=== PATIENT | female | born 1965 | race Caucasian/White ===

== ENCOUNTER 2016-10-20 16:29 | Emergency (ER) | payer SELFPAY ==
[~2016-10-20] VITALS: Wt 68.5 kg
[~2016-10-20 16:29] MED LIST: 'PARAFON FORTE500 M1 PO; ANAPROX DS550 MG PO; AUGMENTIN 875 M1 TAB PO; CLINDAMYCIN HC300 MG PO; CORDROL20 MG PO; DARVOCET N 1001 TAB PO; HYDROCODONE BIT1 T11 PO; MEDROL DOSEPAK4 MG PO; MOTRIN800 MG PO; NAPROSYN500 MG PO; NORFLEX100 MG PO; PROAIR HFA0.09 MG/AC IH; ROBAXIN750 MG PO; TRAMADOL HCL50 MG PO; VICODIN 5/500 505 MG PO; VICODIN HP 10-1 EACH PO; ZANAFLEX4 M2 PO
[2016-10-20 16:33] VITALS: BP 171/90
[2016-10-20 17:07] LABS: BASO # 0.1 10*3/uL (0.0-0.1); BASO % 0.6 % (0.0-1.0); EOS # 0.2 10*3/uL (0.0-0.4); EOS % 2.1 % (1.0-4.0); HEMATOCRIT 40.1 % (37.0-47.0); HEMOGLOBIN 13.1 g/dl (12.0-16.0); LYMPH # 2.4 10*3/uL (1.3-4.4); LYMPH % 24.6 % (27.0-41.0); MEAN CELL VOLUME 93.7 fl (81.0-99.0); MEAN CORPUSCULAR HGB 30.6 pg (27.0-31.0); MEAN CORPUSCULAR HGB CONC 32.7 g/dl (33.0-37.0); MONO # 0.7 10*3/uL (0.1-1.0); MONO % 6.6 % (3.0-9.0); NEUT # 6.4 10*3/uL (2.3-7.9); NEUT % 65.8 % (47.0-73.0); PLATELET COUNT AUTOMATED 346 10*3/uL (130-400); RED BLOOD COUNT 4.28 10*6/uL (4.10-5.10); RED CELL DISTRI WIDTH 13.2 % (0-14.5); WHITE BLOOD COUNT 9.8 10*3/uL (4.8-10.8)
[2016-10-20 17:20] LABS: INTERNATIONAL NORM RATIO 0.9 (2.0-3.5); PROTHROMBIN TIME 9.3 SECONDS (8.9-12.2)
[2016-10-20 17:50] LABS: ALBUMIN 3.7 gm/dl (3.1-4.5); ALKALINE PHOSPHATASE 76 U/L (45-117); BILIRUBIN, TOTAL 0.3 mg/dl (0.2-1.0); BUN 19 mg/dl (7-24); C-REACTIVE PROTEIN 0.61 MG/DL (0-0.3); CARBON DIOXIDE 26 mmol/L (21-32); CHLORIDE 108 mmol/L (98-107); EST GLOM FILT AFRICAN AMERICAN > 60 ml/min; GLUCOSE 145 mg/dL (65-99); MAGNESIUM 2.3 mg/dL (1.5-2.1); POTASSIUM 3.9 mmol/L (3.5-5.1); SGOT/AST 23 IU/L (3-35); SGPT/ALT 27 U/L (12-78); SODIUM 142 mmol/L (136-145); TOTAL PROTEIN 7.3 gm/dL (6.4-8.2)
[2016-10-20 17:52] LABS: TROPONIN I < 0.015 ng/ml (<0.045)
[2016-10-20] MEDS ORDERED: DOXYCYCLINE100 M3 PO (18:03)
[2016-10-20] MEDS ORDERED: PREDNISONE50 MG PO (18:03)
== END 2016-10-20 18:39 | disposition left against medical advice (07) ==
LOC: ED 16:29
PROVIDERS: Student in an Organized Health Care Education/Training Program
DX: J96.90 Respiratory failure, unspecified, unspecified whether with hypoxia or hypercapnia (principal); J44.1 Chronic obstructive pulmonary disease with (acute) exacerbation; F17.200 Nicotine dependence, unspecified, uncomplicated; Z88.0 Allergy status to penicillin; Z88.1 Allergy status to other antibiotic agents; Z88.8 Allergy status to other drugs, medicaments and biological substances; J45.909 Unspecified asthma, uncomplicated

== ENCOUNTER 2017-04-26 16:38 | Emergency (ER) | payer SELFPAY ==
[~2017-04-26] VITALS: Ht 165.1 cm; Wt 69.9 kg
[~2017-04-26 16:38] MED LIST changes: +DOXYCYCLINE100 M3 PO; +PREDNISONE50 MG PO
[2017-04-26 16:43] VITALS: BP 134/80
[2017-04-26] MEDS ORDERED: PREDNISONE10 MG PO (20:15)
== END 2017-04-26 20:16 | disposition home or self-care (01) ==
LOC: ED 16:38
DX: M76.61 Achilles tendinitis, right leg (principal); F17.200 Nicotine dependence, unspecified, uncomplicated; Z98.890 Other specified postprocedural states; Z79.899 Other long term (current) drug therapy; Z88.0 Allergy status to penicillin; Z88.6 Allergy status to analgesic agent; Z88.8 Allergy status to other drugs, medicaments and biological substances; Z88.1 Allergy status to other antibiotic agents

== ENCOUNTER 2017-06-29 08:18 | Emergency (ER) | payer OTHER ==
[~2017-06-29] VITALS: Ht 165.1 cm; Wt 74.4 kg
[2017-06-29 08:18] VITALS: BP 181/83
[~2017-06-29 08:18] MED LIST changes: +PREDNISONE10 MG PO
[2017-06-29] MEDS ORDERED: PREDNISONE50 MG PO (10:37)
== END 2017-06-29 10:38 | disposition home or self-care (01) ==
LOC: ED 08:18
DX: S39.012A Strain of muscle, fascia and tendon of lower back, initial encounter (principal); J44.9 Chronic obstructive pulmonary disease, unspecified; Z88.0 Allergy status to penicillin; Z88.6 Allergy status to analgesic agent; Z88.8 Allergy status to other drugs, medicaments and biological substances; X58.XXXA Exposure to other specified factors, initial encounter; Y93.89 Activity, other specified; Y92.89 Other specified places as the place of occurrence of the external cause; Y99.8 Other external cause status

== ENCOUNTER → 2017-08-09 | Outpatient (CLI) | payer OTHER | END | disposition home or self-care (01) | LOC: US 08-02 12:30 | DX: M79.604 Pain in right leg (principal); M79.605 Pain in left leg ==

== ENCOUNTER → 2017-12-30 | Outpatient (CLI) | payer OTHER | END | disposition home or self-care (01) | LOC: ORTHO 00:49 | DX: M25.531 Pain in right wrist (principal); M25.522 Pain in left elbow; R20.0 Anesthesia of skin ==

== ENCOUNTER → 2019-05-03 | Outpatient (CLI) | payer OTHER ==
[~2019-05-03] MED LIST changes: +ROBAXIN500 M1 PO
[2019-05-03 10:30] LABS: BASO % 0.2 % (0.0-1.0); EOS # 0.1 10*3/uL (0.0-0.4); EOS % 0.8 % (1.0-4.0); HEMATOCRIT 37.8 % (37.0-47.0); HEMOGLOBIN 12.1 g/dl (12.0-16.0); LYMPH # 3.1 10*3/uL (1.3-4.4); LYMPH % 23.5 % (27.0-41.0); MEAN CELL VOLUME 93.3 fl (81.0-99.0); MEAN CORPUSCULAR HGB 29.9 pg (27.0-31.0); MEAN PLATELET VOLUME 8.9 fl (9.6-12.3); MONO # 0.9 10*3/uL (0.1-1.0); MONO % 6.4 % (3.0-9.0); PLATELET COUNT AUTOMATED 513 10*3/uL (130-400); RED BLOOD COUNT 4.05 10*6/uL (4.10-5.10); RED CELL DISTRI WIDTH 13.7 % (0-14.5); RETICULOCYTE % 1.59 % (0.50-2.50); WHITE BLOOD COUNT 13.3 10*3/uL (4.8-10.8)
[2019-05-03 10:47] LABS: BILIRUBIN NEGATIVE (NEGATIVE); BLOOD NEGATIVE (NEGATIVE); CLARITY CLEAR (CLEAR); COLOR YELLOW (YELLOW); GLUCOSE NEGATIVE (NEGATIVE); KETONE NEGATIVE (NEGATIVE); LEUKO ESTERASE NEGATIVE (NEGATIVE); NITRITE NEGATIVE (NEGATIVE); PH 6.5 (5.0-9.0); SPECIFIC GRAVITY 1.015 (1.005-1.030); UROBILINOGEN 0.2 E.U./dl (0.2-1.0)
[2019-05-03 10:55] LABS: WBC 0-2 wbc/hpf (0-5)
[2019-05-03 11:00] LABS: ALBUMIN 3.1 gm/dl (3.1-4.5); BILIRUBIN, DIRECT < 0.1 mg/dL (0.0-0.2); BUN 11 mg/dl (7-24); CHLORIDE 104 mmol/L (98-107); CHOLESTEROL 170 mg/dL (<200); GAMMA GLUTAMYL TRANSPEPTIDASE 20 U/L (5-55); POTASSIUM 3.2 mmol/L (3.5-5.1); SODIUM 140 mmol/L (136-145); TRIGLYCERIDES 214 mg/dl (<150); VLDL CHOLESTEROL 43 mg/dL (6-40)
[2019-05-03 11:10] LABS: ALKALINE PHOSPHATASE 81 U/L (45-117); HDL CHOLESTEROL 69 mg/dl (40-60); IRON 61 ug/dL (50-170); LDL CHOLESTEROL 58 mg/dL (9-159); SGOT/AST 15 IU/L (3-35); SGPT/ALT 21 U/L (12-78); TOTAL IRON BINDING CAPACITY 316 ug/dl (250-450); TOTAL PROTEIN 6.8 gm/dL (6.4-8.2)
[2019-05-03 11:36] LABS: FERRITIN 36.6 ng/mL (10.0-291.0); VITAMIN D, 25-HYDROXY 46.1 ng/mL (30-100)
== END | disposition home or self-care (01) ==
LOC: LAB 08:48 → MAMMO 09:30
PROVIDERS: Family Medicine
DX: Z12.31 Encounter for screening mammogram for malignant neoplasm of breast (principal); E78.5 Hyperlipidemia, unspecified; E55.9 Vitamin D deficiency, unspecified; R53.83 Other fatigue; R79.89 Other specified abnormal findings of blood chemistry

== ENCOUNTER → 2019-06-06 | Outpatient (CLI) | payer OTHER | END | disposition home or self-care (01) | LOC: MAMMO 10:00 | DX: N63.21 Unspecified lump in the left breast, upper outer quadrant (principal); N60.02 Solitary cyst of left breast; D24.2 Benign neoplasm of left breast; R92.8 Other abnormal and inconclusive findings on diagnostic imaging of breast ==

== ENCOUNTER → 2022-07-08 | Outpatient (CLI) | payer OTHER ==
[2022-07-09 05:07] LABS: ALPHA-1-ANTITRYPSIN, SERUM 194 mg/dL (101-187)
== END | disposition home or self-care (01) ==
LOC: LAB 10:18
PROVIDERS: ATTEND Internal Medicine Critical Care Medicine
DX: J44.9 Chronic obstructive pulmonary disease, unspecified (principal)

== ENCOUNTER → 2022-09-06 | Outpatient (CLI) | payer OTHER ==
[2022-09-06 14:36] LABS: BASO % 0.4 % (0.0-1.0); EOS # 0.1 10*3/uL (0.0-0.4); EOS % 1.1 % (1.0-4.0); HEMATOCRIT 45.9 % (37.0-47.0); LYMPH # 1.8 10*3/uL (1.3-4.4); LYMPH % 23.8 % (27.0-41.0); MEAN CELL VOLUME 89.3 fl (81.0-99.0); MEAN CORPUSCULAR HGB 28.8 pg (27.0-31.0); MEAN CORPUSCULAR HGB CONC 32.2 g/dl (33.0-37.0); MEAN PLATELET VOLUME 8.7 fl (9.6-12.3); MONO # 0.6 10*3/uL (0.1-1.0); MONO % 8.5 % (3.0-9.0); NEUT % 66.1 % (47.0-73.0); PLATELET COUNT AUTOMATED 438 10*3/uL (130-400); RED BLOOD COUNT 5.14 10*6/uL (4.10-5.10); RED CELL DISTRI WIDTH 13.6 % (0-14.5); RETICULOCYTE % 1.02 % (0.50-2.50); WHITE BLOOD COUNT 7.5 10*3/uL (4.8-10.8)
[2022-09-06 14:38] LABS: BILIRUBIN Negative (Negative); BLOOD Negative (Negative); CLARITY Clear (Clear); COLOR Dark Yellow (Yellow); GLUCOSE Negative (Negative); KETONE Trace (Negative); LEUKO ESTERASE 1+ (Negative); NITRITE Negative (Negative); SPECIFIC GRAVITY 1.025 (1.001-1.030)
[2022-09-06 14:51] LABS: BACTERIA 3+; RBC 0-2 rbc/hpf (0-2)
[2022-09-06 15:09] LABS: ALKALINE PHOSPHATASE 104 U/L (46-116); BUN 10 mg/dl (9-23); CHLORIDE 102 mmol/L (98-107); CHOLESTEROL 176 mg/dL (<200); GAMMA GLUTAMYL TRANSPEPTIDASE 19 U/L (0-73); LDL CHOLESTEROL 85 mg/dL (9-159); POTASSIUM 3.8 mmol/L (3.4-5.1); SGPT/ALT 12 U/L (10-49); T3 UPTAKE 19.9 % (22.4-36.7); THYROID STIM HORMONE (HS) 0.665 uIU/ml (0.550-4.780); THYROXINE (T4) TOTAL 12.4 ug/dl (4.5-10.9); TRIGLYCERIDES 81 mg/dl (<150); VITAMIN D, 25-HYDROXY 43.7 ng/mL (30-100)
== END | disposition home or self-care (01) ==
LOC: LAB 14:10
PROVIDERS: ATTEND Family Medicine
DX: E78.5 Hyperlipidemia, unspecified (principal); E55.9 Vitamin D deficiency, unspecified; R79.89 Other specified abnormal findings of blood chemistry; R53.83 Other fatigue; R74.8 Abnormal levels of other serum enzymes

== ENCOUNTER → 2023-06-06 | Outpatient (CLI) | payer OTHER ==
[2023-06-06 12:49] LABS: BASO # 0.1 10*3/uL (0.0-0.1); BASO % 0.8 % (0.0-1.0); EOS # 0.2 10*3/uL (0.0-0.4); HEMATOCRIT 46.3 % (37.0-47.0); LYMPH # 2.3 10*3/uL (1.3-4.4); MEAN CELL VOLUME 91.5 fl (81.0-99.0); MEAN CORPUSCULAR HGB 27.9 pg (27.0-31.0); MEAN CORPUSCULAR HGB CONC 30.5 g/dl (33.0-37.0); MEAN PLATELET VOLUME 8.9 fl (9.6-12.3); MONO # 0.7 10*3/uL (0.1-1.0); NEUT % 54.9 % (47.0-73.0); PLATELET COUNT AUTOMATED 467 10*3/uL (130-400); RED BLOOD COUNT 5.06 10*6/uL (4.10-5.10); RED CELL DISTRI WIDTH 14.6 % (0-14.5); RETICULOCYTE % 0.94 % (0.50-2.50); WHITE BLOOD COUNT 7.2 10*3/uL (4.8-10.8)
[2023-06-06 13:01] LABS: BILIRUBIN Negative (Negative); BLOOD Negative (Negative); CLARITY Clear (Clear); COLOR Yellow (Yellow); GLUCOSE Negative (Negative); KETONE Negative (Negative); LEUKO ESTERASE Trace (Negative); NITRITE Negative (Negative)
[2023-06-06 13:16] LABS: ALKALINE PHOSPHATASE 97 U/L (46-116); BUN 12 mg/dl (9-23); CHLORIDE 104 mmol/L (98-107); CHOLESTEROL 234 mg/dL (<200); GAMMA GLUTAMYL TRANSPEPTIDASE 15 U/L (0-73); LDL CHOLESTEROL 128 mg/dL (9-159); POTASSIUM 3.8 mmol/L (3.4-5.1); SGPT/ALT 12 U/L (5-49); T3 UPTAKE 24.9 % (22.4-36.7); THYROXINE (T4) TOTAL 9.7 ug/dl (4.5-10.9); TOTAL PROTEIN 7.1 gm/dL (6.0-8.0); TRIGLYCERIDES 182 mg/dl (<150)
[2023-06-06 13:18] LABS: VITAMIN D, 25-HYDROXY 35.3 ng/mL (30-100)
[2023-06-06 13:42] LABS: BACTERIA 2+; MUCOUS 2+
== END | disposition home or self-care (01) ==
LOC: LAB 12:17
PROVIDERS: ATTEND Family Medicine
DX: E78.5 Hyperlipidemia, unspecified (principal); R79.89 Other specified abnormal findings of blood chemistry; R53.83 Other fatigue; E55.9 Vitamin D deficiency, unspecified

== ENCOUNTER → 2024-06-11 | Outpatient (CLI) | payer MEDICARE ==
[~2024-06-11] MED LIST changes: +GADOTERATE MEGLUMINE 10 MMOL/20 ML VIAL IV ONE
== END | disposition home or self-care (01) ==
LOC: US 08:43
PROVIDERS: ATTEND Family Medicine
DX: I65.23 Occlusion and stenosis of bilateral carotid arteries (principal); R51.9 Headache, unspecified; R47.81 Slurred speech

== ENCOUNTER → 2024-06-26 | Outpatient (CLI) | payer MEDICARE | END | disposition home or self-care (01) | LOC: MRI 06-11 10:00 | PROVIDERS: ATTEND Family Medicine | DX: H74.8X1 Other specified disorders of right middle ear and mastoid (principal); R44.3 Hallucinations, unspecified; R41.3 Other amnesia; R47.81 Slurred speech; R51.9 Headache, unspecified ==

== ENCOUNTER 2024-07-31 10:05 | Emergency (ER) | payer MEDICARE ==
[~2024-07-31] VITALS: Ht 165.1 cm; Wt 81.2 kg
[~2024-07-31 10:05] MED LIST changes: -GADOTERATE MEGLUMINE 10 MMOL/20 ML VIAL IV ONE
[2024-07-31 10:18] VITALS: BP 149/86
[2024-07-31] MEDS ORDERED: METHOCARBAMOL 500 MG TAB PO ONE (11:00)
[2024-07-31] MEDS ORDERED: methylPREDNISolone sod succ 125 MG VIAL IV ONE (11:00)
[2024-07-31] MEDS ORDERED: ACETAMINOPHEN 100 ML IV ONE (11:15)
[2024-07-31] MEDS ORDERED: PREDNISONE50 MG PO (12:40)
[2024-07-31] MEDS ORDERED: METHOCARBAMOL500 M1 PO (12:40)
== END 2024-07-31 12:34 | disposition home or self-care (01) ==
LOC: ED 10:05
DX: M54.50 Low back pain, unspecified (principal); J44.9 Chronic obstructive pulmonary disease, unspecified; F32.A Depression, unspecified; F41.9 Anxiety disorder, unspecified; Z79.899 Other long term (current) drug therapy; Z88.0 Allergy status to penicillin; Z88.1 Allergy status to other antibiotic agents; Z88.6 Allergy status to analgesic agent; Z98.890 Other specified postprocedural states

== ENCOUNTER 2024-08-19 09:43 | Inpatient (IN) | payer MEDICARE ==
[~2024-08-19] VITALS: Ht 165.1 cm; Wt 81.2 kg
[~2024-08-19 09:43] MED LIST changes: +METHOCARBAMOL500 M1 PO
[2024-08-19 09:56] VITALS: BP 140/84
[2024-08-19] MEDS ORDERED: Albuterol Sulf/Ipratropium 3 ML VIAL NEB ONE ×2 (10:25→10:59)
[2024-08-19] MEDS ORDERED: ACETAMINOPHEN 325 MG TAB PO ONE (10:25)
[2024-08-19] MEDS ORDERED: methylPREDNISolone sod succ 125 MG VIAL IV ONE (10:25)
[2024-08-19 10:42] LABS: BASO % 0.2 % (0.0-1.0); EOS % 0.3 % (1.0-4.0); HEMATOCRIT 32.2 % (37.0-47.0); MEAN CELL VOLUME 74.4 fl (81.0-99.0); MEAN CORPUSCULAR HGB 21.2 pg (27.0-31.0); MEAN CORPUSCULAR HGB CONC 28.6 g/dl (33.0-37.0); MEAN PLATELET VOLUME 9.3 fl (9.6-12.3); MONO % 8.1 % (3.0-9.0); NEUT # 9.4 10*3/uL (2.3-7.9); NEUT % 79.6 % (47.0-73.0); PLATELET COUNT AUTOMATED 395 10*3/uL (130-400); RED BLOOD COUNT 4.33 10*6/uL (4.10-5.10); RED CELL DISTRI WIDTH 20.7 % (0-14.5); WHITE BLOOD COUNT 11.8 10*3/uL (4.8-10.8)
[2024-08-19 11:06] LABS: ALKALINE PHOSPHATASE 90 U/L (46-116); BUN 13 mg/dl (9-23); CHLORIDE 99 mmol/L (98-107); POTASSIUM 3.7 mmol/L (3.4-5.1); SGPT/ALT 9 U/L (5-49); TOTAL PROTEIN 7.1 gm/dL (6.0-8.0)
[2024-08-19] MEDS ORDERED: LISINOPRIL20 MG PO (11:06)
[2024-08-19] MEDS ORDERED: ALPRAZOLAM0.5 M3 PO (11:06)
[2024-08-19] MEDS ORDERED: AMLODIPINE BESYL5 MG PO (11:06)
[2024-08-19] MEDS ORDERED: OMEPRAZOLE40 MG PO (11:06)
[2024-08-19] MEDS ORDERED: VITAMIN D3125 MC1 PO (11:07)
[2024-08-19] MEDS ORDERED: ATORVASTATIN CA20 M1 PO (11:07)
[2024-08-19 11:10] VITALS: BP 116/90
[2024-08-19 11:34] LABS: ABG BASE EXCESS -0.4 mmol/L (-2.0-3.0); ABG O2 SATURATION 79.5 % (94.0-98.0); ARTERIAL BLOOD GAS PH 7.362 (7.350-7.450)
[2024-08-19 11:37] LABS: ARTERIAL BLOOD GAS PO2 47.7 mmHg (83.0-108.0)
[2024-08-19] MEDS ORDERED: Albuterol Sulfate 2.5 MG/3 ML VIAL NEB ONE (11:45)
[2024-08-19] MEDS ORDERED: Nicotine 21 MG PATCH T ONE (12:15)
[2024-08-19 13:34] VITALS: BP 122/84
[2024-08-19] MEDS ORDERED: MORPHINE Sulfate 2 MG/ML SYR IV PRN (13:35)
[2024-08-19] MEDS ORDERED: Ondansetron Hydrochloride 4 MG/2 ML VIAL IV PRN (13:35)
[2024-08-19] MEDS ORDERED: Pantoprazole Sodium 40 MG TAB PO PRN (13:40)
[2024-08-19] MEDS ORDERED: Albuterol Sulf/Ipratropium 3 ML VIAL NEB SCH (13:50)
[2024-08-19 14:40] VITALS: BP 117/62
[2024-08-19] MEDS ORDERED: cefTRIAXone Sodium 10 ML IV SCH (15:00)
[2024-08-19 16:00] VITALS: BP 117/62
[2024-08-19] MEDS ORDERED: cefTRIAXone Sodium 1 GM in SYRINGE INFUSION 10 ML IV SCH (16:00)
[2024-08-19 20:00] VITALS: BP 145/73
[2024-08-19] MEDS ORDERED: LORazepam 0.5 MG TAB PO PRN (20:45)
[2024-08-19 20:58] LABS: BILIRUBIN Negative (Negative); BLOOD Negative (Negative); CLARITY Clear (Clear); COLOR Yellow (Yellow); GLUCOSE Negative (Negative); KETONE Trace (Negative); LEUKO ESTERASE Negative (Negative); NITRITE Negative (Negative); PH 5.5 (4.5-8.0)
[2024-08-19 21:05] LABS: MUCOUS 3+; WBC 0-2 wbc/hpf (0-5)
[2024-08-19] MEDS ORDERED: methylPREDNISolone sod succ 40 MG VIAL IV SCH (22:00)
[2024-08-19] MEDS ORDERED: Doxycycline Hyclate 100 MG CAPSULE PO SCH (22:00)
[2024-08-20] VITALS (7 sets, daily range): BP systolic 92–150; BP diastolic 40–81
[2024-08-20] MEDS ORDERED: LORazepam 1 MG TAB PO PRN (06:14)
[2024-08-20 06:30] LABS: EOS % 0.2 % (1.0-4.0); HEMATOCRIT 30.5 % (37.0-47.0); MEAN CELL VOLUME 74.2 fl (81.0-99.0); MEAN CORPUSCULAR HGB 21.7 pg (27.0-31.0); MEAN CORPUSCULAR HGB CONC 29.2 g/dl (33.0-37.0); MEAN PLATELET VOLUME 9.6 fl (9.6-12.3); MONO # 0.2 10*3/uL (0.1-1.0); MONO % 3.8 % (3.0-9.0); NEUT # 5.3 10*3/uL (2.3-7.9); NEUT % 86.5 % (47.0-73.0); PLATELET COUNT AUTOMATED 415 10*3/uL (130-400); RED BLOOD COUNT 4.11 10*6/uL (4.10-5.10); RETICULOCYTE % 1.53 % (0.50-2.50); WHITE BLOOD COUNT 6.1 10*3/uL (4.8-10.8)
[2024-08-20 06:36] LABS: CHLORIDE 99 mmol/L (98-107); CHOLESTEROL 168 mg/dL (<200); FREE T4 1.06 ng/dl (0.89-1.76); LDL CHOLESTEROL 94 mg/dL (9-159); TRIGLYCERIDES 72 mg/dl (<150)
[2024-08-20 06:40] LABS: BUN 25 mg/dl (9-23)
[2024-08-20 07:26] LABS: VITAMIN D, 25-HYDROXY 56.7 ng/mL (30-100)
[2024-08-20 08:07] LABS: ABG O2 SATURATION 87.8 % (94.0-98.0); ARTERIAL BLOOD GAS PH 7.347 (7.350-7.450); ARTERIAL BLOOD GAS PO2 58.2 mmHg (83.0-108.0)
[2024-08-20 08:08] LABS: ABG BASE EXCESS 3.2 mmol/L (-2.0-3.0)
[2024-08-20] MEDS ORDERED: dexmedeTOMIDine IN 0.9 % NACL 100 ML IV SCH (08:50)
[2024-08-20] MEDS ORDERED: Enoxaparin Sodium 40 MG/0.4 ML SYR SC SCH (10:00)
[2024-08-20] MEDS ORDERED: Nicotine 21 MG PATCH T SCH (10:00)
[2024-08-20] MEDS ORDERED: amLODIPine besylate 5 MG TAB PO SCH (10:00)
[2024-08-20] MEDS ORDERED: LISINOPRIL 20 MG TAB PO SCH (10:00)
[2024-08-20] MEDS ORDERED: ATORVASTATIN CALCIUM 20 MG TAB PO SCH (18:00)
[2024-08-21] VITALS (8 sets, daily range): BP systolic 102–147; BP diastolic 41–77
[2024-08-21 06:10] LABS: HEMATOCRIT 31.4 % (37.0-47.0); MEAN CORPUSCULAR HGB 21.3 pg (27.0-31.0); MEAN PLATELET VOLUME 9.7 fl (9.6-12.3); PLATELET COUNT AUTOMATED 459 10*3/uL (130-400); RED BLOOD COUNT 4.13 10*6/uL (4.10-5.10); WHITE BLOOD COUNT 12.8 10*3/uL (4.8-10.8)
[2024-08-21 06:14] LABS: MANUAL DIFF REFLEX YES
[2024-08-21 06:48] LABS: ALKALINE PHOSPHATASE 76 U/L (46-116); CHLORIDE 100 mmol/L (98-107); POTASSIUM 4.3 mmol/L (3.4-5.1); SGPT/ALT 12 U/L (5-49); TOTAL PROTEIN 6.9 gm/dL (6.0-8.0)
[2024-08-21 06:50] LABS: BUN 42 mg/dl (9-23)
[2024-08-21 07:00] LABS: MICROCYTOSIS SLIGHT; PLATELET SUFFICIENCY HIGH (NORMAL); TOTAL CELLS COUNTED 100 #CELLS
[2024-08-21] MEDS ORDERED: FERROUS SULFATE 325 MG TAB PO SCH (12:45)
[2024-08-21] MEDS ORDERED: SODIUM CHLORIDE 0.9% 100 ML BAG IV ONE (13:00)
[2024-08-21] MEDS ORDERED: IOHEXOL 350 MG/ML 100 ML VIAL IV ONE (13:00)
[2024-08-22] VITALS: BP 140/72; BP 148/90
[2024-08-22 04:00] VITALS: BP 153/92
[2024-08-22 06:05] LABS: HEMATOCRIT 29.2 % (37.0-47.0); MEAN CELL VOLUME 75.1 fl (81.0-99.0); MEAN CORPUSCULAR HGB 21.9 pg (27.0-31.0); MEAN CORPUSCULAR HGB CONC 29.1 g/dl (33.0-37.0); MEAN PLATELET VOLUME 9.7 fl (9.6-12.3); PLATELET COUNT AUTOMATED 520 10*3/uL (130-400); RED BLOOD COUNT 3.89 10*6/uL (4.10-5.10); RED CELL DISTRI WIDTH 21.2 % (0-14.5); WHITE BLOOD COUNT 13.4 10*3/uL (4.8-10.8)
[2024-08-22 06:11] LABS: MANUAL DIFF REFLEX YES
[2024-08-22 06:24] LABS: BUN 40 mg/dl (9-23); CHLORIDE 103 mmol/L (98-107); POTASSIUM 4.6 mmol/L (3.4-5.1)
[2024-08-22 07:33] LABS: TOTAL CELLS COUNTED 100 #CELLS
[2024-08-22 07:34] LABS: OVALOCYTES FEW; PLATELET SUFFICIENCY HIGH (NORMAL)
[2024-08-22 07:36] LABS: MICROCYTOSIS SLIGHT; POLYCHROMASIA SLIGHT; SCHISTOCYTES FEW
[2024-08-22 08:00] VITALS: BP 148/82
[2024-08-22] MEDS ORDERED: SODIUM CHLORIDE 0.9% 1,000 ML IV ONE (08:45)
[2024-08-22] MEDS ORDERED: Metoprolol Tartrate 25 MG TAB PO SCH (08:45)
[2024-08-22 12:00] VITALS: BP 135/70
[2024-08-22] MEDS ORDERED: LORazepam 1 MG TAB PO SCH (14:00)
[2024-08-22 16:00] VITALS: BP 139/68
[2024-08-22 20:00] VITALS: BP 123/69
[2024-08-23] VITALS (10 sets, daily range): BP systolic 124–169; BP diastolic 62–105
[2024-08-23 05:17] LABS: BUN 31 mg/dl (9-23); CHLORIDE 103 mmol/L (98-107); POTASSIUM 4.1 mmol/L (3.4-5.1)
[2024-08-23 06:12] LABS: BASO % 0.1 % (0.0-1.0); EOS % 0.3 % (1.0-4.0); HEMATOCRIT 28.2 % (37.0-47.0); MEAN CORPUSCULAR HGB 21.8 pg (27.0-31.0); MEAN CORPUSCULAR HGB CONC 28.7 g/dl (33.0-37.0); MEAN PLATELET VOLUME 9.6 fl (9.6-12.3); MONO % 7.5 % (3.0-9.0); NEUT # 9.6 10*3/uL (2.3-7.9); NEUT % 74.1 % (47.0-73.0); PLATELET COUNT AUTOMATED 520 10*3/uL (130-400); RED BLOOD COUNT 3.71 10*6/uL (4.10-5.10); RED CELL DISTRI WIDTH 21.2 % (0-14.5)
[2024-08-23] MEDS ORDERED: methylPREDNISolone sod succ 40 MG VIAL IV SCH (10:00)
[2024-08-23] MEDS ORDERED: Metoprolol Tartrate 50 MG TAB PO SCH (10:00)
[2024-08-23] MEDS ORDERED: SODIUM CHLORIDE 0.9% 500 ML IV ONE (10:27)
[2024-08-23] MEDS ORDERED: Vancomycin Hydrochloride 1,000 MG VIAL ONE (11:51)
[2024-08-23] MEDS ORDERED: BUPivacaine 0.5% 10 ML VIAL ONE (11:51)
[2024-08-23] MEDS ORDERED: ceFAZolin sodium/sodium chlor 20 ML IV ONE (12:48)
[2024-08-23] MEDS ORDERED: Ketamine Hydrochloride 50 MG/5 ML SYRINGE IV ONE (13:51)
[2024-08-23] MEDS ORDERED: PROPOFOL 200 MG/20 ML VIAL IV ONE (13:51)
[2024-08-23] MEDS ORDERED: LORazepam 1 MG TAB PO SCH (16:00)
[2024-08-24] VITALS: BP 144/73
[2024-08-24 06:17] LABS: BUN 27 mg/dl (9-23); CHLORIDE 101 mmol/L (98-107); POTASSIUM 4.1 mmol/L (3.4-5.1)
[2024-08-24 06:51] LABS: BASO % 0.1 % (0.0-1.0); EOS % 0.2 % (1.0-4.0); HEMATOCRIT 31.8 % (37.0-47.0); MEAN CELL VOLUME 76.6 fl (81.0-99.0); MEAN CORPUSCULAR HGB 21.7 pg (27.0-31.0); MEAN CORPUSCULAR HGB CONC 28.3 g/dl (33.0-37.0); MEAN PLATELET VOLUME 9.6 fl (9.6-12.3); MONO # 0.7 10*3/uL (0.1-1.0); MONO % 5.8 % (3.0-9.0); NEUT % 74.2 % (47.0-73.0); PLATELET COUNT AUTOMATED 553 10*3/uL (130-400); RED BLOOD COUNT 4.15 10*6/uL (4.10-5.10); RED CELL DISTRI WIDTH 21.2 % (0-14.5); WHITE BLOOD COUNT 12.1 10*3/uL (4.8-10.8)
[2024-08-24 08:00] VITALS: BP 117/57
[2024-08-24] MEDS ORDERED: predniSONE 20 MG TAB PO SCH (10:00)
[2024-08-24 12:00] VITALS: BP 123/53
[2024-08-24 13:07] LABS: ACID FAST SPEC PROCESSING Tissue Grinding (.)
[2024-08-24 13:07] LABS: ACID FAST SPEC PROCESSING Tissue Grinding (.)
[2024-08-24 16:00] VITALS: BP 94/75
[2024-08-24 17:12] VITALS: BP 127/58
[2024-08-24 20:34] VITALS: BP 140/72
[2024-08-25] VITALS: BP 143/93
[2024-08-25 05:54] VITALS: BP 133/73
[2024-08-25 06:11] LABS: BASO % 0.1 % (0.0-1.0); EOS % 0.4 % (1.0-4.0); HEMATOCRIT 29.1 % (37.0-47.0); MEAN CELL VOLUME 75.6 fl (81.0-99.0); MEAN CORPUSCULAR HGB 21.8 pg (27.0-31.0); MEAN CORPUSCULAR HGB CONC 28.9 g/dl (33.0-37.0); MEAN PLATELET VOLUME 9.1 fl (9.6-12.3); MONO # 0.8 10*3/uL (0.1-1.0); MONO % 7.1 % (3.0-9.0); NEUT # 8.3 10*3/uL (2.3-7.9); NEUT % 72.7 % (47.0-73.0); PLATELET COUNT AUTOMATED 567 10*3/uL (130-400); RED BLOOD COUNT 3.85 10*6/uL (4.10-5.10); RED CELL DISTRI WIDTH 21.2 % (0-14.5); WHITE BLOOD COUNT 11.4 10*3/uL (4.8-10.8)
[2024-08-25 06:21] LABS: BUN 24 mg/dl (9-23); CHLORIDE 101 mmol/L (98-107); POTASSIUM 3.7 mmol/L (3.4-5.1)
[2024-08-25 08:00] VITALS: BP 119/70
[2024-08-25 12:00] VITALS: BP 122/71
[2024-08-25] MEDS ORDERED: MORPHINE Sulfate 2 MG/ML SYR IV PRN (13:40)
[2024-08-25] MEDS ORDERED: Ketorolac Tromethamine 15 MG/ML VIAL IV PRN (13:40)
[2024-08-25 16:00] VITALS: BP 143/76
[2024-08-25 20:00] VITALS: BP 149/79
[2024-08-26] VITALS: BP 135/74
[2024-08-26 04:00] VITALS: BP 166/88
[2024-08-26 06:36] LABS: BASO % 0.1 % (0.0-1.0); EOS # 0.1 10*3/uL (0.0-0.4); EOS % 0.4 % (1.0-4.0); HEMATOCRIT 29.7 % (37.0-47.0); MEAN CELL VOLUME 77.1 fl (81.0-99.0); MEAN CORPUSCULAR HGB 21.6 pg (27.0-31.0); MEAN CORPUSCULAR HGB CONC 27.9 g/dl (33.0-37.0); MEAN PLATELET VOLUME 9.4 fl (9.6-12.3); MONO % 7.5 % (3.0-9.0); NEUT # 10.6 10*3/uL (2.3-7.9); NEUT % 76.3 % (47.0-73.0); PLATELET COUNT AUTOMATED 588 10*3/uL (130-400); RED BLOOD COUNT 3.85 10*6/uL (4.10-5.10); RED CELL DISTRI WIDTH 21.2 % (0-14.5); WHITE BLOOD COUNT 13.9 10*3/uL (4.8-10.8)
[2024-08-26 06:44] LABS: BUN 21 mg/dl (9-23); CHLORIDE 99 mmol/L (98-107); POTASSIUM 3.9 mmol/L (3.4-5.1)
[2024-08-26 08:00] VITALS: BP 137/68
[2024-08-26] MEDS ORDERED: DOXYCYCLINE MO100 MG PO (11:46)
[2024-08-26 12:00] VITALS: BP 128/67
== END 2024-08-26 13:21 | disposition home or self-care (01) | DRG 987 ==
LOC: ED 09:43 → 4E 13:11 → ICCU 13:11 → EDHOLD 13:11 → 4E 14:30 → ICCU 08-20 09:11 → 4E 08-21 13:31
PROVIDERS: Emergency Medicine; Podiatrist; Student in an Organized Health Care Education/Training Program; ADMIT Student in an Organized Health Care Education/Training Program; ATTEND Student in an Organized Health Care Education/Training Program
PROC: 5A09357 Assistance with Respiratory Ventilation, Less than 24 Consecutive Hours, Continuous Positive Airway Pressure (ICD-10-PCS; principal; 2024-08-19)
PROC: 5A09357 Assistance with Respiratory Ventilation, Less than 24 Consecutive Hours, Continuous Positive Airway Pressure (ICD-10-PCS; 2024-08-20)
PROC: 5A09357 Assistance with Respiratory Ventilation, Less than 24 Consecutive Hours, Continuous Positive Airway Pressure (ICD-10-PCS; 2024-08-21)
PROC: 0QBR0ZX Excision of Left Toe Phalanx, Open Approach, Diagnostic (ICD-10-PCS; 2024-08-23)
DX: J96.21 Acute and chronic respiratory failure with hypoxia (principal); G93.41 Metabolic encephalopathy; F10.930 Alcohol use, unspecified with withdrawal, uncomplicated; J44.1 Chronic obstructive pulmonary disease with (acute) exacerbation; J96.22 Acute and chronic respiratory failure with hypercapnia; M79.89 Other specified soft tissue disorders; L97.529 Non-pressure chronic ulcer of other part of left foot with unspecified severity; D50.9 Iron deficiency anemia, unspecified; E66.9 Obesity, unspecified; F41.1 Generalized anxiety disorder; F32.A Depression, unspecified; E05.90 Thyrotoxicosis, unspecified without thyrotoxic crisis or storm; I10 Essential (primary) hypertension; E78.2 Mixed hyperlipidemia; D72.828 Other elevated white blood cell count; R73.9 Hyperglycemia, unspecified; F17.210 Nicotine dependence, cigarettes, uncomplicated; M54.50 Low back pain, unspecified; M20.5X2 Other deformities of toe(s) (acquired), left foot; G62.9 Polyneuropathy, unspecified; R73.03 Prediabetes; E86.0 Dehydration; S91.102A Unspecified open wound of left great toe without damage to nail, initial encounter; Q38.2 Macroglossia; Z88.1 Allergy status to other antibiotic agents; Z88.0 Allergy status to penicillin; Z88.8 Allergy status to other drugs, medicaments and biological substances; Z91.09 Other allergy status, other than to drugs and biological substances; Z79.899 Other long term (current) drug therapy; Z79.01 Long term (current) use of anticoagulants; Z79.2 Long term (current) use of antibiotics; Z82.49 Family history of ischemic heart disease and other diseases of the circulatory system; Z90.49 Acquired absence of other specified parts of digestive tract; Z82.5 Family history of asthma and other chronic lower respiratory diseases; Z71.6 Tobacco abuse counseling; Z80.3 Family history of malignant neoplasm of breast; Z68.29 Body mass index [BMI] 29.0-29.9, adult; Z80.0 Family history of malignant neoplasm of digestive organs; X58.XXXA Exposure to other specified factors, initial encounter; Y93.89 Activity, other specified; Y92.89 Other specified places as the place of occurrence of the external cause; Y99.8 Other external cause status; Y90.9 Presence of alcohol in blood, level not specified

== ENCOUNTER → 2024-12-17 | Outpatient (CLI) | payer MEDICARE ==
[~2024-12-17] MED LIST changes: +ALPRAZOLAM0.5 M3 PO; +AMLODIPINE BESYL5 MG PO; +ATORVASTATIN CA20 M1 PO; +CLARITIN10 MG PO; +DOXYCYCLINE MO100 MG PO; +IRON325 M1 PO; +Ipratropium Brom3 ML INH; +LISINOPRIL20 MG PO; +NEBULIZER NEB; +OMEPRAZOLE40 MG PO; +OXYCODONE HCL5 MG PO; +SYMB160 INH; +VENT7GM INH; +VIBRA-TAB100 MG PO; +VITAMIN D3125 MC1 PO
[2024-12-17 11:02] LABS: MEAN CELL VOLUME 79.3 fl (81.0-99.0); MEAN CORPUSCULAR HGB 21.6 pg (27.0-31.0); MEAN PLATELET VOLUME 9.2 fl (9.6-12.3); NUCLEATED RED BLOOD CELL 0.0 % (0.0-0.0); NUCLEATED RED BLOOD CELL 0.0 10*3/uL (0.0-0.0); PLATELET COUNT AUTOMATED 582 10*3/uL (130-400); RED CELL DISTRI WIDTH 27.7 % (0-14.5); RETICULOCYTE % 0.83 % (0.50-2.50)
[2024-12-17 11:05] LABS: MANUAL DIFF REFLEX YES
[2024-12-17 11:17] LABS: PLATELET SUFFICIENCY HIGH (NORMAL)
== END | disposition home or self-care (01) ==
LOC: LAB 10:15
PROVIDERS: ATTEND Family Medicine
DX: R79.89 Other specified abnormal findings of blood chemistry (principal); R53.83 Other fatigue

== ENCOUNTER → 2025-01-15 | Outpatient (CLI) | payer MEDICARE | END | disposition home or self-care (01) | LOC: MRI 09:00 | PROVIDERS: ATTEND Nurse Practitioner Psychiatric/Mental Health | DX: M50.11 Cervical disc disorder with radiculopathy, high cervical region (principal); M48.02 Spinal stenosis, cervical region; M47.22 Other spondylosis with radiculopathy, cervical region; M25.78 Osteophyte, vertebrae ==

== ENCOUNTER → 2025-02-06 | Outpatient (CLI) | payer MEDICARE | END | disposition home or self-care (01) | LOC: RAD 08:20 | PROVIDERS: ATTEND Family Medicine | DX: M81.0 Age-related osteoporosis without current pathological fracture (principal) ==

== ENCOUNTER 2025-03-03 12:28 | Emergency (ER) | payer MEDICARE ==
[~2025-03-03] VITALS: Wt 83.9 kg
[2025-03-03 13:00] VITALS: BP 142/66
[2025-03-03] MEDS ORDERED: IOHEXOL 350 MG/ML 100 ML VIAL IV ONE (13:40)
[2025-03-03 13:50] LABS: BASO # 0.0 10*3/uL (0.0-0.1); BASO % 0.4 % (0.0-1.0); EOS # 0.1 10*3/uL (0.0-0.4); EOS % 0.7 % (1.0-4.0); MEAN CELL VOLUME 76.3 fl (81.0-99.0); MEAN CORPUSCULAR HGB 22.4 pg (27.0-31.0); MEAN PLATELET VOLUME 8.7 fl (9.6-12.3); MONO # 0.9 10*3/uL (0.1-1.0); MONO % 8.2 % (3.0-9.0); NEUT # 7.9 10*3/uL (2.3-7.9); NEUT % 74.0 % (47.0-73.0); NUCLEATED RED BLOOD CELL 0.0 % (0.0-0.0); NUCLEATED RED BLOOD CELL 0.0 10*3/uL (0.0-0.0); PLATELET COUNT AUTOMATED 430 10*3/uL (130-400); RED CELL DISTRI WIDTH 21.0 % (0-14.5)
[2025-03-03 14:11] LABS: BUN 8 mg/dl (9-23)
[2025-03-03] MEDS ORDERED: SODIUM CHLORIDE 0.9% 100 ML IV ONE (14:40)
== END 2025-03-03 15:47 | disposition home or self-care (01) ==
LOC: ED 12:28
PROVIDERS: Nurse Practitioner Family
DX: R60.0 Localized edema (principal); F17.200 Nicotine dependence, unspecified, uncomplicated; Z88.0 Allergy status to penicillin; Z88.6 Allergy status to analgesic agent; Z88.8 Allergy status to other drugs, medicaments and biological substances; Z79.899 Other long term (current) drug therapy